=== PATIENT | male | born 1980 ===

== ENCOUNTER 2017-03-06 11:04 | Emergency (ER) | payer OTHER ==
[2017-03-06 11:14] VITALS: BMI 25.8
[2017-03-06 11:43] VITALS: RESP 18; TEMP 98.3
--- NOTE | 2017-03-06 11:49 | C.PDOC ---
History Of Present Illness 37 y/o male presents to ED with complaints of pain to the left upper frontal tooth for 4 days. Patient reports swelling developed to left cheek 2 days ago which prompted visit to ED today. Patient denies fever, vomiting, bleeding or any other complaints at this time. Time Seen by Provider: 03/06/17 11:29 Chief Complaint (Nursing): Dental Pain History Per: Patient History/Exam Limitations: no limitations Onset/Duration Of Symptoms: Days Current Symptoms Are (Timing): Still Present Pain Scale Rating Of: 6 Quality: Positive for: "Pain" Past Medical History Reviewed: Historical Data, Nursing Documentation, Vital Signs Vital Signs: Last Vital Signs Temp 98.3 F 03/06/17 11:30 Pulse 77 03/06/17 11:30 Resp 18 03/06/17 11:30 BP 130/88 03/06/17 11:30 Pulse Ox 100 03/06/17 11:53 - Medical History PMH: No Chronic Diseases Surgical History: No Surg Hx Family History: States: No Known Family Hx - Social History Hx Alcohol Use: Yes Hx Substance Use: No - Immunization History Hx Tetanus Toxoid Vaccination: Yes Hx Influenza Vaccination: Yes Hx Pneumococcal Vaccination: Yes Review Of Systems Except As Marked, All Systems Reviewed And Found Negative. Constitutional: Negative for: Fever, Chills ENT: Positive for: Mouth Pain (Tooth) Gastrointestinal: Negative for: Nausea, Vomiting Skin: Negative for: Rash Physical Exam - Physical Exam Appears: Non-toxic, No Acute Distress Skin: Normal Color, Warm, Dry, No Rash Head: Normacephalic, Other (Tenderness and swelling to left upper cheek) Eye(s): bilateral: Normal Inspection, PERRL, EOMI Nose: Normal Oral Mucosa: Moist, No Trismus Tongue: Normal Appearing, No Swelling Lips: Normal Appearing, No Swelling Teeth: No Loose, Other (Tooth number 10 cracked and tender) Throat: Normal, No Erythema, No Exudate Neck: Normal ROM, Supple Lymphatic: Normal Exam, No Adenopathy Neurological/Psych: Oriented x3, Normal Speech Gait: Steady ED Course And Treatment O2 Sat by Pulse Oximetry: 100 (RA) Pulse Ox Interpretation: Normal Medical Decision Making Medical Decision Making: The patient was instructed to follow up with the dentist/oral suregeon within 1- 2 days without fail. Return if worsened. Disposition - Disposition Referrals: [facility]. [facility] [Outside] Disposition: HOME/ ROUTINE Disposition Time: 12:08 Condition: GOOD Additional Instructions: Follow up with the medical doctor within 1-2 days. Return if worsened. 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 - Scribe Statement The provider has reviewed the documentation as recorded by the Gayibedvin Baron All medical record entries made by the Romy were at my direction and personally dictated by me. I have reviewed the chart and agree that the record accurately reflects my personal performance of the history, physical exam, medical decision making, and the department course for this patient. I have also personally directed, reviewed, and agree with the discharge instructions and disposition.
--- NOTE | 2017-03-06 11:50 | C.PDOC ---
Time Seen by Provider: 03/06/17 11:29 Chief Complaint (Nursing): Dental Pain Past Medical History Vital Signs: Last Vital Signs Temp 98.3 F 03/06/17 11:30 Pulse 77 03/06/17 11:30 Resp 18 03/06/17 11:30 BP 130/88 03/06/17 11:30 Pulse Ox 77 L 03/06/17 11:30 - Social History Hx Alcohol Use: Yes Hx Substance Use: No - Immunization History Hx Tetanus Toxoid Vaccination: Yes Hx Influenza Vaccination: Yes Hx Pneumococcal Vaccination: Yes ED Course And Treatment O2 Sat by Pulse Oximetry: 77 Disposition - Disposition Forms: [employer] (Macedonian)
[2017-03-06 12:17] VITALS: BP 130/78; PULSE 72; O2SAT 95
== END 2017-03-06 12:17 | disposition home or self-care (01) ==
LOC: C.ER 11:04
DX: K04.7 Periapical abscess without sinus (principal)